=== PATIENT | female | born 1985 | race Caucasian/White ===

== ENCOUNTER 2017-08-07 13:38 | Emergency (ER) | payer OTHER ==
[2017-08-07] MEDS ORDERED: HYDROcodone/Acetaminophen 5/325 mg Tablet ONE (14:39)
--- NOTE | 2017-08-07 16:00 | RAD ---
LEFT KNEE FOUR VIEWS: History: Fall. Pain. Comparison: None. FINDINGS: Moderate sized joint effusion. No acute fracture or malalignment. IMPRESSION: Moderate joint effusion without displaced fracture or malalignment suggest either acute internal dera ngement or micro-impaction fracture given lack of significant degenerative changes. MRI recommended. POS: [facility]
== END 2017-08-07 15:11 | disposition home or self-care (01) ==
LOC: ERS 13:38
DX: M25.562 Pain in left knee (principal); F17.210 Nicotine dependence, cigarettes, uncomplicated; W19.XXXA Unspecified fall, initial encounter

== ENCOUNTER 2017-08-14 11:19 | Emergency (ER) | payer OTHER | END 2017-08-14 13:30 | disposition home or self-care (01) | LOC: ERS 11:19 | DX: W18.30XA Fall on same level, unspecified, initial encounter; S89.92XA Unspecified injury of left lower leg, initial encounter; Z79.01 Long term (current) use of anticoagulants; Z79.899 Other long term (current) drug therapy; F17.210 Nicotine dependence, cigarettes, uncomplicated; Z79.891 Long term (current) use of opiate analgesic | CPT/HCPCS: 99283 ==

== ENCOUNTER 2017-10-10 17:57 | Emergency (ER) | payer OTHER ==
[~2017-10-10 17:57] MED LIST: ISOVUE-370 76%-LOCM 1 ML ONE
[2017-10-10 18:28] LABS: Bilirubin Negative (Negative); Blood, Urine Negative (Negative); Glucose, Urine (Dipstick) Negative (Negative); Leukocyte Negative (Negative); Nitrite Negative (Negative); Protein, Urine (Dipstick) Negative (Neg-Trace); Urobilinogen 0.2 mg/dL (0.2-1.0)
[2017-10-10 18:32] LABS: Pregnancy Test - Urine (BHCG) Negative (Negative); Pregu Control Background? CLEAR/WHITE (CLR/WHITE); Pregu Control Bar Appear? YES (CONTROL BAR); Specific Gravity 1.036 (1.002-1.036)
[2017-10-10 18:32] LABS: #Basophils 0.1 thou/uL (0.0-0.2); #Eosinphils 0.5 thou/uL (0.0-0.7); #Lymphocytes 4.1 thou/uL (1.20-3.40); #Monocytes 0.7 thou/uL (0.11-0.59); #Neutrophils 10.4 thou/uL (1.40-6.50); %Basophils 0.5 % (0.0-1.0); %Lymphocytes 26.2 % (21.0-51.0); %Monocytes 4.6 % (0.0-10.0); %Neutrophils 65.7 % (42.0-75.0); Mean Corpuscular HGB CONC 33.8 g/dL (32.0-36.0); Mean Corpuscular Hemoglobin 28.5 pg (27.0-31.0); Mean Corpuscular Volume 84.4 fl (81.0-99.0); Mean Platelet Volume 8.4 fL (7.4-10.4); Platelet Count 279 thou/uL (130-400); RBC Distribution Width 14.1 % (11.5-14.5); Red Blood Cell (RBC) Count 4.56 mill/uL (4.20-5.40); White Blood Cell (WBC) Count 15.8 thou/uL (4.8-10.8)
[2017-10-10 18:34] LABS: Clarity Cloudy (Clear); Specific Gravity, Urine 1.036 (1.002-1.036)
[2017-10-10] MEDS ORDERED: Ondansetron ODT 4 MG TAB ONE (18:48)
[2017-10-10 19:02] LABS: ALT (SGPT) 14 U/L (8-55); AST (SGOT) 15 U/L (5-34); Albumin 4.1 g/dL (3.5-5.0); Alkaline Phosphatase 82 U/L (40-150); Anion Gap 11 mmol/L (10-20); BUN (Urea Nitrogen) 8 mg/dL (7.0-18.7); Bilirubin, Total 0.2 mg/dL (0.2-1.2); Calc. Creatinine Clearance 0 mL/min (70-130); Calcium 9.1 mg/dL (7.8-10.44); Carbon Dioxide 24 mmol/L (22-29); Chloride 109 mmol/L (98-107); Estimated GFR-MDRD 77; Globulin 2.7 g/dL (2.4-3.5); Glucose 91 mg/dL (70-105); Potassium 3.8 mmol/L (3.5-5.1); Protein, Total 6.8 g/dL (6.0-8.3); Sodium 140 mmol/L (136-145)
--- NOTE | 2017-10-10 21:16 | CT ---
ABDOMEN CT WITH CONTRAST: PELVIS CT WITH CONTRAST: HISTORY: Pain. Diarrhea. Nausea. COMPARISON: 09/30/2016, 10/07/2016 TECHNIQUE: An abdomen and pelvis CT is performed with IV contrast. Enteric contrast is not administered. Coron al reformatted images are submitted for interpretation. FINDINGS: ABDOMEN: The lung bases are clear. Heart size is normal. No pericardial effusion. The descending thoracic aorta and abdominal aorta have a normal caliber. No periaortic fat stranding. The gallblad femi is surgically absent. Intrahepatic and extrahepatic portal vein is patent. The liver, spleen, pancreas, and adrenal glands have appropriate enhancement. No gastrohepatic, retrocrural, or periportal lymphadenopathy. No mesenteric mass, lymphadenopathy, f ree air, or free fluid. A small ventral abdominal wall hernia containing mesenteric fat is noted. Symmetric enhancement of the kidneys. Punctate, nonobstructing calculi in the right and left kidneys . Bilaterally, no obstructive uropathy. Limited evaluation of the alimentary canal due to lack of oral contrast. Gastric mucosa, duodenum, a nd multiple normal caliber small bowel loops are noted. The ileocecal junction is normal. Changes d ue to previous appendectomy are identified. Scattered fecal material in a nondistended, nondilated c olon. Occasional diverticulum. No diverticulitis. PELVIS: The uterus and left adnexal structures are unremarkable. Hypodensity in the right adnexa, c ompatible with a 2.4 x 1.9 cm cyst with an attenuation coefficient of 17 Hounsfield units. A trace amount of free fluid in the pelvis. No lymphadenopathy or free air. No lytic or blastic lesions in the osseous structures. Previous Essure device is noted. IMPRESSION: 1. Punctate nonobstructing calculi in the left and right kidneys, measuring 1 mm. No obstructive uro brenton. 2. No evidence of bowel obstruction. 3. Previous appendectomy. 4. Right ovarian cyts. Follow up ultrasound in 6 weeks. POS: [facility]
[2017-10-10] MEDS ORDERED: Ketorolac Tromethamine 30 MG/ML VIAL ONE (21:21)
[2017-10-10] MEDS ORDERED: Mag-Al 1200 mg/1200 mg/30 ML UDCUP ONE (21:21)
[2017-10-10] MEDS ORDERED: Lidocaine Viscous Sol 2% 15 ml UD Cup ONE (21:21)
== END 2017-10-10 21:42 | disposition home or self-care (01) ==
LOC: ERS 17:57
DX: N20.0 Calculus of kidney (principal); N83.201 Unspecified ovarian cyst, right side; F17.210 Nicotine dependence, cigarettes, uncomplicated; Z79.899 Other long term (current) drug therapy
CPT/HCPCS: 74177; 80053; 81003; 81025; 83690; 85025; 96361; 96374; 96375; J1885; J2270; Q0162